=== PATIENT | female | born 1960 | race Two or more races ===

== ENCOUNTER 2023-08-24 19:32 | Emergency (ER) | payer OTHER ==
[~2023-08-24] VITALS: Ht 170.2 cm; Wt 81.3 kg
[2023-08-24] MEDS ORDERED: CEPH500C PO (22:46)
[2023-08-24] MEDS ORDERED: IBUP1TAB5 PO (22:46)
[2023-08-24] MEDS ORDERED: MUPI2OIN2 EX (22:46)
[2023-08-24] MEDS: TETANUS-DIPTH-ACEL PERTUSSIS 0.5ML SYR Tdap IM ONE (23:33)
[2023-08-24] MEDS: NEOMYCIN-BACITRACIN-POLYM UNITDOSE PKG TOP OINT TOP ONE (23:33)
[2023-08-24 23:53] VITALS: BP 143/74; PULSE 78; RESP 18; TEMP 98; O2SAT 98
== END 2023-08-24 23:54 | disposition home or self-care (01) ==
LOC: ER 19:32
DX: S61.111A Laceration without foreign body of right thumb with damage to nail, initial encounter (principal); W26.8XXA Contact with other sharp object(s), not elsewhere classified, initial encounter; Y93.89 Activity, other specified; Y92.89 Other specified places as the place of occurrence of the external cause; Y99.8 Other external cause status
CPT/HCPCS: 64450; 90471; 90715